=== PATIENT | male | born 1960 | race Caucasian/White ===

== ENCOUNTER 2021-03-30 20:27 | Emergency (ER) | payer OTHER ==
[~2021-03-30] VITALS: Ht 195.6 cm; Wt 136.1 kg
--- NOTE | 2021-03-30 23:03 | NUR ---
Dr. Braun at bedside for MSE.
[2021-03-30] MEDS ORDERED: LIDOCAINE HCL 1% 20 ML VIAL TP ONE (23:15)
[2021-03-30] MEDS ORDERED: TDAP DIPH,PERTUSS,TET VAC/PF 0.5 ML DISP.SYRIN IM ONE (23:15)
[2021-03-30] MEDS ORDERED: ONDANSETRON 4 MG/2 ML VIAL IV ONE (23:15)
[2021-03-30] MEDS ORDERED: CEFTRIAXONE 1 G in IV DEXTROSE 5% 50 ML IV ONE (23:15)
[2021-03-30] MEDS ORDERED: SODIUM BICARBONATE 4.2 % (NEUT) 5 ML VIAL TP ONE (23:15)
[2021-03-30] MEDS ORDERED: HYDROMORPHONE 1 MG/1 ML DISP.SYRIN IV ONE (23:15)
--- NOTE | 2021-03-30 23:22 | NUR ---
Pt out of ER for CT.
[2021-03-30] MEDS ORDERED: ONDANSETRON 4 MG/2 ML VIAL ONE (23:27)
[2021-03-30] MEDS ORDERED: HYDROMORPHONE 1 MG/1 ML DISP.SYRIN ONE (23:27)
--- NOTE | 2021-03-30 23:34 | NUR ---
Pt back to ER from CT.
[2021-03-31] MEDS ORDERED: TDAP DIPH,PERTUSS,TET VAC/PF 0.5 ML DISP.SYRIN IM ONE (00:02)
[2021-03-31] MEDS ORDERED: CEFTRIAXONE /D5W 50ML IVPB **ER PYXIS IV ONE (00:02)
--- NOTE | 2021-03-31 01:15 | NUR ---
Dr. Braun on panel call with Rene Arcos DNP.
[2021-03-31 01:21] LABS: HEMATOCRIT 47.4 % (36.7-47.1); MEAN CORPUSCULAR VOLUME 84.4 fL (73.0-96.2); PLATELET COUNT (AUTO) 255 K/uL (152-348)
[2021-03-31 01:33] LABS: ALANINE AMINOTRANSFERASE 45 U/L (16-63); ALKALINE PHOSPHATASE 67 U/L (50-136); ASPARTATE AMINOTRANSFERASE 26 U/L (15-37); BILIRUBIN,DIRECT < 0.1 mg/dL (0.0-0.2); BILIRUBIN,TOTAL 0.6 mg/dL (0.2-1.0); CARBON DIOXIDE 27 mmol/L (21-32); CHLORIDE 104 mmol/L (98-107); GLUCOSE 155 mg/dL (74-106); POTASSIUM 4.3 mmol/L (3.5-5.1); TOTAL PROTEIN, SERUM 7.7 g/dL (6.4-8.2); UREA NITROGEN, BLOOD 15 mg/dL (7-18)
--- NOTE | 2021-03-31 03:30 | NUR ---
Spoke with Claudia TEJEDAgraduate assistant of [facility], patient is going to [id number]. Pt is accepted by Rene Arcos DNP.
--- NOTE | 2021-03-31 03:50 | NUR ---
Called [facility], eta [phone].
[2021-03-31] MEDS ORDERED: ONDANSETRON 4 MG/2 ML VIAL IV ONE (05:15)
[2021-03-31] MEDS ORDERED: HYDROMORPHONE 1 MG/1 ML DISP.SYRIN IV ONE (05:15)
[2021-03-31] MEDS ORDERED: ONDANSETRON 4 MG/2 ML VIAL ONE (05:21)
[2021-03-31] MEDS ORDERED: HYDROMORPHONE 1 MG/1 ML DISP.SYRIN ONE (05:21)
--- NOTE | 2021-03-31 07:28 | NUR ---
Report given to Stephenie price.
--- NOTE | 2021-03-31 07:40 | NUR ---
[facility] arrived to ER to transport patient to [facility], report and documentation given to EMT.
--- NOTE | 2021-03-31 07:59 | NUR ---
Report given to Henry TEJEDA [facility]
== END 2021-03-31 08:00 | disposition short-term general hospital (02) ==
LOC: ER 20:35
DX: S92.231 Displaced fracture of intermediate cuneiform of right foot (principal); S97.81XA Crushing injury of right foot, initial encounter; S92.311A Displaced fracture of first metatarsal bone, right foot, initial encounter for closed fracture; S92.321A Displaced fracture of second metatarsal bone, right foot, initial encounter for closed fracture; V03.00XA Pedestrian on foot injured in collision with car, pick-up truck or van in nontraffic accident, initial encounter; Y92.89 Other specified places as the place of occurrence of the external cause; E11.9 Type 2 diabetes mellitus without complications; S91.311A Laceration without foreign body, right foot, initial encounter; Z20.822 Contact with and (suspected) exposure to COVID-19
CPT/HCPCS: 12002; 36415; 73700; 80048; 80076; 85025; 85730; 87426; 90471; 90715; 96365; 96375; 96376; 99285; J0696; J1170 ×2; J2405 ×2; J3490 ×2; A4217; A4663